=== PATIENT | female | born 1945 | race Hispanic/Latino ===

== ENCOUNTER 2020-10-13 10:08 | Outpatient (CLI) | payer MEDICARE, BC | END 2020-10-13 10:09 | disposition home or self-care (01) | LOC: BICULT 10:08 | PROVIDERS: ATTEND Family Medicine | DX: I82.402 Acute embolism and thrombosis of unspecified deep veins of left lower extremity (principal); R60.0 Localized edema ==

== ENCOUNTER 2021-07-05 13:03 | Outpatient (CLI) | payer MEDICARE, BC | END 2021-07-05 13:04 | disposition home or self-care (01) | LOC: BICCT 13:03 | PROVIDERS: ATTEND Specialist | DX: E27.8 Other specified disorders of adrenal gland (principal); D35.01 Benign neoplasm of right adrenal gland; K43.9 Ventral hernia without obstruction or gangrene; N20.0 Calculus of kidney; R91.1 Solitary pulmonary nodule; I70.90 Unspecified atherosclerosis | CPT/HCPCS: 74178; 82565 ==

== ENCOUNTER 2023-01-31 14:42 | Outpatient (CLI) | payer MEDICARE, BC | END 2023-01-31 14:43 | disposition home or self-care (01) | LOC: BICMAMMO 14:42 | PROVIDERS: ATTEND Internal Medicine Endocrinology, Diabetes & Metabolism | DX: M81.8 Other osteoporosis without current pathological fracture (principal); M85.851 Other specified disorders of bone density and structure, right thigh; M85.852 Other specified disorders of bone density and structure, left thigh | CPT/HCPCS: 77080 ==

== ENCOUNTER 2023-03-13 12:24 | Emergency (ER) | payer MEDICARE, BC ==
[2023-03-13 13:30] LABS: #Eosinphils 0.1 thou/uL (0.0-0.7); #Monocytes 0.6 thou/uL (0.11-0.59); #Neutrophils 5.7 thou/uL (1.40-6.50); %Basophils 0.5 % (0.0-1.0); %Eosinophils 1.2 % (0.0-10.0); %Lymphocytes 22.9 % (21.0-51.0); %Monocytes 7.4 % (0.0-10.0); %Neutrophils 67.8 % (42.0-75.0); Hemoglobin 13.8 g/dL (12.0-16.0); Mean Corpuscular HGB CONC 32.9 g/dL (32.0-36.0); Mean Corpuscular Hemoglobin 31.9 pg (27.0-31.0); Mean Platelet Volume 10.6 fL (7.4-10.4); Platelet Count 249 10x3/uL (130-400); RBC Distribution Width 14.4 % (11.5-14.5); Red Blood Cell (RBC) Count 4.33 mill/uL (4.20-5.40); White Blood Cell (WBC) Count 8.4 10x3/uL (4.8-10.8)
[2023-03-13] MEDS ORDERED: cefTRIAXone (ROCEPHIN) 1 GM VIAL ONE (13:30)
[2023-03-13 14:53] LABS: ALT (SGPT) 14 U/L (8-55); AST (SGOT) 20 U/L (5-34); Albumin 3.5 g/dL (3.4-4.8); Alkaline Phosphatase 115 U/L (40-110); Anion Gap 9 mmol/L (10-20); BUN (Urea Nitrogen) 15 mg/dL (9.8-20.1); Bilirubin, Total 0.3 mg/dL (0.2-1.2); Calc. Creatinine Clearance 0 mL/min (70-130); Calcium 8.5 mg/dL (7.8-10.44); Carbon Dioxide 30 mmol/L (23-31); Chloride 98 mmol/L (98-107); Estimated GFR 62; Globulin 2.9 g/dL (2.4-3.5); Glucose 81 mg/dL (83-110); Potassium 4.2 mmol/L (3.5-5.1); Protein, Total 6.4 g/dL (5.8-8.1); Sodium 133 mmol/L (136-145)
[2023-03-13] MEDS ORDERED: Iopamidol-370 76% 500 ML MDV (1 ML CHARGE) ONE (15:16)
== END 2023-03-13 17:42 | disposition home or self-care (01) ==
LOC: ERS 12:24
DX: L03.116 Cellulitis of left lower limb (principal); R91.8 Other nonspecific abnormal finding of lung field; E11.9 Type 2 diabetes mellitus without complications; E78.5 Hyperlipidemia, unspecified; I10 Essential (primary) hypertension; E66.9 Obesity, unspecified; F17.210 Nicotine dependence, cigarettes, uncomplicated
CPT/HCPCS: 71045; 71275; 80053; 83605; 83880; 84484; 85025; 87040; 93005; 96365; J0696; Q9967

== ENCOUNTER 2023-03-28 14:02 | Outpatient (CLI) | payer MEDICARE, BC | END 2023-03-28 14:03 | disposition home or self-care (01) | LOC: SCSMRI 14:02 | PROVIDERS: ATTEND Internal Medicine | DX: C79.31 Secondary malignant neoplasm of brain (principal); C34.31 Malignant neoplasm of lower lobe, right bronchus or lung; G93.9 Disorder of brain, unspecified; G93.6 Cerebral edema; R90.82 White matter disease, unspecified | CPT/HCPCS: 70553 ==

== ENCOUNTER → 2023-03-28 | Outpatient (CLI) | payer MEDICARE, BC | LOC: PET 11:45 | PROVIDERS: ATTEND Internal Medicine | DX: C34.91 Malignant neoplasm of unspecified part of right bronchus or lung (principal) | CPT/HCPCS: 78815; A9552 ==

== ENCOUNTER 2023-03-31 08:48 | Day surgery (SDC) | payer MEDICARE, BC ==
[2023-03-28 15:09] VITALS: BMI 37.2
[2023-03-31] MEDS ORDERED: fentaNYL 50 mcg/mL 1 mL Vial ONE (10:05)
[2023-03-31] MEDS ORDERED: SUGAMMADEX SODIUM 200 MG/2 ML VIAL ONE (10:05)
[2023-03-31] MEDS ORDERED: Midazolam HCl 2 mg/2 ml Vial ONE (10:06)
[2023-03-31] MEDS ORDERED: Ipratropium/Albuterol 3 ML NEB ONE (10:24)
[2023-03-31] MEDS ORDERED: Dextrose 50% Abboject 50 ML SYRINGE ONE (11:00)
== END 2023-03-31 11:41 | disposition home or self-care (01) ==
LOC: SDC 08:48
PROVIDERS: ATTEND Internal Medicine
DX: Z53.8 Procedure and treatment not carried out for other reasons (principal); R91.8 Other nonspecific abnormal finding of lung field; E16.2 Hypoglycemia, unspecified
CPT/HCPCS: 36416; J2250; J3010; J7620; J7999

== ENCOUNTER 2023-04-03 13:39 | Inpatient (IN) | payer MEDICARE, BC ==
[2023-04-03 14:38] LABS: #Eosinphils 0.2 thou/uL (0.0-0.7); #Monocytes 0.7 thou/uL (0.11-0.59); #Neutrophils 6.6 thou/uL (1.40-6.50); %Basophils 0.3 % (0.0-1.0); %Eosinophils 1.5 % (0.0-10.0); %Lymphocytes 24.3 % (21.0-51.0); %Neutrophils 66.6 % (42.0-75.0); Hematocrit 40.9 % (36.0-47.0); Hemoglobin 13.2 g/dL (12.0-16.0); Mean Corpuscular HGB CONC 32.3 g/dL (32.0-36.0); Mean Corpuscular Hemoglobin 31.4 pg (27.0-31.0); Mean Corpuscular Volume 97.4 fl (78.0-98.0); Mean Platelet Volume 10.5 fL (7.4-10.4); Platelet Count 233 10x3/uL (130-400); RBC Distribution Width 14.2 % (11.5-14.5); White Blood Cell (WBC) Count 9.8 10x3/uL (4.8-10.8)
[2023-04-03 15:11] LABS: ALT (SGPT) 10 U/L (8-55); AST (SGOT) 17 U/L (5-34); Albumin 3.3 g/dL (3.4-4.8); Alkaline Phosphatase 112 U/L (40-110); Anion Gap 12 mmol/L (10-20); BUN (Urea Nitrogen) 14 mg/dL (9.8-20.1); Bilirubin, Total 0.4 mg/dL (0.2-1.2); Calc. Creatinine Clearance 0 mL/min (70-130); Calcium 9.2 mg/dL (7.8-10.44); Carbon Dioxide 29 mmol/L (23-31); Chloride 97 mmol/L (98-107); Estimated GFR 73; Globulin 3.1 g/dL (2.4-3.5); Potassium 4.2 mmol/L (3.5-5.1); Protein, Total 6.4 g/dL (5.8-8.1); Sodium 134 mmol/L (136-145)
[2023-04-03 15:29] LABS: Glucose 47 mg/dL (83-110)
[2023-04-03] MEDS ORDERED: Vancomycin 1 GM/200 ML (FROZEN) BAG ONE (16:27)
[2023-04-03] MEDS ORDERED: Piperacillin/Tazobactam 3.375 GM VIAL ONE (16:27)
[2023-04-03] MEDS ORDERED: Ondansetron ODT 4 MG TAB PO PRN (17:02)
[2023-04-03] MEDS ORDERED: Acetaminophen 325 MG TAB PO PRN (17:02)
[2023-04-03] MEDS ORDERED: Dextrose 5% in Water 1,000 ML IV PRN (17:09)
[2023-04-03] MEDS ORDERED: Glucagon 1 MG/ML KIT IM PRN (17:09)
[2023-04-03] MEDS ORDERED: Dextrose 50% Abboject 50 ML SYRINGE SLOW IVP PRN (17:09)
[2023-04-03] MEDS ORDERED: Insulin Regular 300 UNITS/3 ML VIAL SC PRN (17:09)
[2023-04-03] MEDS ORDERED: Insulin Glargine 30 UNITS/0.3 ML VIAL SC SCH (21:00)
[2023-04-03 22:10] VITALS: BMI 37.2
[2023-04-03] MEDS ORDERED: Vancomycin 1 GM in Premix Bag 1 BAG IVPB SCH (23:00)
[2023-04-03] MEDS: Clindamycin/D5W 900 MG in Premix Bag 1 BAG IVPB SCH (23:22)
[2023-04-03] MEDS: Insulin Glargine 30 UNITS/0.3 ML VIAL SC SCH (23:23)
[2023-04-04] MEDS: Clindamycin/D5W 900 MG in Premix Bag 1 BAG IVPB SCH ×2 (06:56→14:06)
[2023-04-04 08:38] LABS: INR-International Normal Ratio 1.1; Prothrombin Time 14.1 sec (12.0-14.7)
[2023-04-04 08:39] LABS: PTT 32.9 sec (22.9-36.1)
[2023-04-04] MEDS ORDERED: fentaNYL 50 mcg/mL 1 mL Vial ONE (08:53)
[2023-04-04] MEDS ORDERED: Lidocaine 1% PF 5 ML VIAL ONE (08:54)
[2023-04-04] MEDS ORDERED: Midazolam HCl 2 mg/2 ml Vial ONE (08:54)
[2023-04-04] MEDS ORDERED: Sodium Bicarbonate 2.5 MEQ/5 ML VIAL ONE (08:54)
[2023-04-04] MEDS: Cefepime 1 GM in Sodium Chloride 0.9% 100 ML IVPB SCH (10:50)
[2023-04-04] MEDS ORDERED: Clindamycin/D5W 600 MG in Premix Bag 1 BAG IVPB SCH (14:15)
[2023-04-04] MEDS ORDERED: VANCOMYCIN 1.75 GM/500 ML BAG 1.75 GM in Premix Bag 1 BAG IVPB SCH (20:00)
[2023-04-04] MEDS ORDERED: Ezetimibe 10 MG TAB PO SCH (21:00)
[2023-04-04] MEDS ORDERED: Atorvastatin Calcium 40 MG TAB PO SCH (21:00)
[2023-04-04] MEDS ORDERED: Latanoprost 0.005% Ophth Soln 2.5 ml Bottle EA EYE SCH (21:00)
[2023-04-04] MEDS: glipiZIDE 10 MG TAB PO SCH (22:01)
[2023-04-04] MEDS: Insulin Glargine 30 UNITS/0.3 ML VIAL SC SCH (22:01)
[2023-04-04] MEDS: Clindamycin/D5W 600 MG in Premix Bag 1 BAG IVPB SCH (22:02)
[2023-04-05] MEDS: Cefepime 1 GM in Sodium Chloride 0.9% 100 ML IVPB SCH ×2 (00:26→08:22)
[2023-04-05] MEDS: Clindamycin/D5W 600 MG in Premix Bag 1 BAG IVPB SCH (06:16)
[2023-04-05 07:12] LABS: Anion Gap 12 mmol/L (10-20); BUN (Urea Nitrogen) 15 mg/dL (9.8-20.1); Calc. Creatinine Clearance 83 mL/min (70-130); Carbon Dioxide 25 mmol/L (23-31); Chloride 99 mmol/L (98-107); Estimated GFR 69; Glucose 95 mg/dL (83-110); Sodium 132 mmol/L (136-145)
[2023-04-05] MEDS: glipiZIDE 10 MG TAB PO SCH (08:21)
[2023-04-05 08:26] VITALS: BP 160/72; TEMP 97.8
[2023-04-05] MEDS ORDERED: Empagliflozin 25 MG TAB PO SCH (09:00)
[2023-04-05] MEDS ORDERED: Potassium Chloride 10 MEQ TAB PO SCH (09:00)
[2023-04-05] MEDS ORDERED: Clopidogrel Bisulfate 75 MG TAB PO SCH (09:00)
== END 2023-04-05 13:00 | disposition home or self-care (01) | DRG 603 ==
LOC: ERS 13:39 → T4-A 17:05 → OBSVTOIN 17:05
PROVIDERS: ADMIT Internal Medicine; ATTEND Family Medicine
PROC: 0BBF3ZX Excision of Right Lower Lung Lobe, Percutaneous Approach, Diagnostic (ICD-10-PCS; principal; 2023-04-04)
DX: L03.116 Cellulitis of left lower limb (principal); J96.11 Chronic respiratory failure with hypoxia; C7A.1 Malignant poorly differentiated neuroendocrine tumors; C79.31 Secondary malignant neoplasm of brain; I25.10 Atherosclerotic heart disease of native coronary artery without angina pectoris; E78.5 Hyperlipidemia, unspecified; E11.51 Type 2 diabetes mellitus with diabetic peripheral angiopathy without gangrene; I10 Essential (primary) hypertension; F17.210 Nicotine dependence, cigarettes, uncomplicated; E66.9 Obesity, unspecified; F41.9 Anxiety disorder, unspecified; Z88.5 Allergy status to narcotic agent; Z88.8 Allergy status to other drugs, medicaments and biological substances; Z79.82 Long term (current) use of aspirin; Z79.899 Other long term (current) drug therapy; Z79.4 Long term (current) use of insulin; Z90.49 Acquired absence of other specified parts of digestive tract; Z98.890 Other specified postprocedural states; Z87.81 Personal history of (healed) traumatic fracture; Z68.37 Body mass index [BMI] 37.0-37.9, adult; Z79.02 Long term (current) use of antithrombotics/antiplatelets
CPT/HCPCS: 32408; 36415; 36416; 71045; 77012; 80048; 80053; 83605; 85025; 85610; 85730; 87040; 88305; 88333; 88341; 88342; 88360; 96365; 96367; J0692; J1815; J2250; J2543; J3010; J3370; J3370-JW; J3490

== ENCOUNTER 2023-05-12 15:55 | Inpatient (IN) | payer MEDICARE, BC ==
[~2023-05-12 15:55] MED LIST: Iopamidol-370 76% 500 ML MDV (1 ML CHARGE) ONE
[2023-05-12 17:14] LABS: Hemoglobin 12.1 g/dL (12.0-16.0); Mean Corpuscular HGB CONC 33.6 g/dL (32.0-36.0); Mean Corpuscular Hemoglobin 31.4 pg (27.0-31.0); Mean Corpuscular Volume 93.5 fl (78.0-98.0); Mean Platelet Volume 12.3 fL (7.4-10.4); RBC Distribution Width 14.1 % (11.5-14.5); Red Blood Cell (RBC) Count 3.85 mill/uL (4.20-5.40); White Blood Cell (WBC) Count 29.5 10x3/uL (4.8-10.8)
[2023-05-12 17:15] LABS: Delete Auto Diff?? YES; Manual Diff?? YES; Platelet Count 62 10x3/uL (130-400)
[2023-05-12 17:34] LABS: ALT (SGPT) 10 U/L (8-55); AST (SGOT) 20 U/L (5-34); Albumin 3.5 g/dL (3.4-4.8); Alkaline Phosphatase 191 U/L (40-110); Anion Gap 14 mmol/L (10-20); BUN (Urea Nitrogen) 15 mg/dL (9.8-20.1); Bilirubin, Total 0.2 mg/dL (0.2-1.2); Calc. Creatinine Clearance 0 mL/min (70-130); Calcium 9.5 mg/dL (7.8-10.44); Carbon Dioxide 28 mmol/L (23-31); Chloride 95 mmol/L (98-107); Estimated GFR 53; Globulin 3.1 g/dL (2.4-3.5); Glucose 109 mg/dL (83-110); Potassium 3.6 mmol/L (3.5-5.1); Protein, Total 6.6 g/dL (5.8-8.1); Sodium 133 mmol/L (136-145)
[2023-05-12 17:37] LABS: Band 22 % (5-11); CellaVision Operator ID LAB.KB; Large Platelets 0.8 % (0-5); Lymphocytes 7 % (21-51); Monocytes 13 % (0-10); Myelocyte 3 % (0-0); Neutrophil 55 % (42-75); Ovalocytes SLIGHT = 2-5 cells HPF (0-1); Platelet Adequacy Comment Platelets Decreased; Polychromasia SLIGHT = 2-3 cells HPF (0-2); Reactive Lymphocytes 1 % (0-10); Smudge Cells 7.4 %; Total Cell Count 121
[2023-05-12] MEDS ORDERED: Cefepime 2 GM VIAL ONE (19:23)
[2023-05-12 19:26] LABS: Magnesium 1.8 mg/dL (1.6-2.6)
[2023-05-12 19:37] LABS: INR-International Normal Ratio 1.1; PTT 29.3 sec (22.9-36.1); Prothrombin Time 14.5 sec (12.0-14.7)
[2023-05-12 20:03] LABS: D-Dimer Test 2.42 *mcg/mL (0.27-0.43)
[2023-05-12] MEDS ORDERED: Vancomycin 1 GM/200 ML (FROZEN) BAG ONE (20:07)
[2023-05-12] MEDS ORDERED: Clindamycin/D5W 900 MG in Premix Bag 1 BAG IVPB SCH (20:30)
[2023-05-12 20:34] LABS: Troponin I 0.012 ng/mL (< 0.028)
[2023-05-12] MEDS ORDERED: Ondansetron ODT 4 MG TAB PO PRN (22:44)
[2023-05-12] MEDS ORDERED: Ondansetron PF 4 MG/2 ML Vial IVP PRN (22:44)
[2023-05-12] MEDS ORDERED: HYDROcodone/Acetaminophen 5/325 mg Tablet PO PRN (22:44)
[2023-05-12] MEDS ORDERED: Pharmacy to Dose : VANC/ABX'S IVPB PRN (22:51)
[2023-05-12] MEDS ORDERED: Melatonin 3 MG TAB PO SCH ×2 (23:45→23:59)
[2023-05-13 00:23] VITALS: BMI 36.1
[2023-05-13 04:55] LABS: Hematocrit 36.2 % (36.0-47.0); Hemoglobin 11.8 g/dL (12.0-16.0); Mean Corpuscular HGB CONC 32.6 g/dL (32.0-36.0); Mean Corpuscular Hemoglobin 30.7 pg (27.0-31.0); Mean Corpuscular Volume 94.3 fl (78.0-98.0); Mean Platelet Volume 10.9 fL (7.4-10.4); Red Blood Cell (RBC) Count 3.84 mill/uL (4.20-5.40); White Blood Cell (WBC) Count 30.3 10x3/uL (4.8-10.8)
[2023-05-13 05:05] LABS: Manual Diff?? YES; Platelet Count 67 10x3/uL (130-400)
[2023-05-13 05:06] LABS: Delete Auto Diff?? YES
[2023-05-13 05:13] LABS: Anion Gap 17 mmol/L (10-20); BUN (Urea Nitrogen) 13 mg/dL (9.8-20.1); Calc. Creatinine Clearance 74 mL/min (70-130); Calcium 8.9 mg/dL (7.8-10.44); Carbon Dioxide 24 mmol/L (23-31); Chloride 100 mmol/L (98-107); Estimated GFR 62; Glucose 150 mg/dL (83-110); Potassium 3.5 mmol/L (3.5-5.1); Sodium 137 mmol/L (136-145)
[2023-05-13] MEDS ORDERED: Furosemide 20 MG/2 ML VIAL ONE (06:23)
[2023-05-13] MEDS: Furosemide 20 MG/2 ML VIAL SLOW IVP SCH ×2 (06:25→14:18)
[2023-05-13 06:26] LABS: Anisocytosis SLIGHT = 6-15 cells HPF (0-5); Band 20 % (5-11); Burr Cells SLIGHT = 2-5 cells HPF (0-1); CellaVision Operator ID LAB.JMM; Lymphocytes 11 % (21-51); Macrocytosis SLIGHT = 6-15 cells HPF (0-5); Metamyelocyte 4 % (0-0); Monocytes 7 % (0-10); Myelocyte 2 % (0-0); Neutrophil 56 % (42-75); Platelet Adequacy Comment Platelets Decreased; Poikilocytosis SLIGHT = 6-15 cells HPF (0-5); Polychromasia SLIGHT = 2-3 cells HPF (0-2); Reactive Lymphocytes 1 % (0-10); Smudge Cells 10.8 %; Total Cell Count 102
[2023-05-13] MEDS ORDERED: Cefepime 1 GM VIAL ONE (09:05)
[2023-05-13] MEDS ORDERED: Aspirin Chewable 81 MG TAB ONE (09:05)
[2023-05-13] MEDS ORDERED: Clopidogrel Bisulfate 75 MG TAB ONE (09:05)
[2023-05-13] MEDS ORDERED: Vancomycin 1 GM/200 ML (FROZEN) BAG ONE (09:05)
[2023-05-13] MEDS: Cefepime 1 GM in Sodium Chloride 0.9% 100 ML IVPB SCH ×2 (09:10→20:38)
[2023-05-13] MEDS: Clopidogrel Bisulfate 75 MG TAB PO SCH (09:10)
[2023-05-13] MEDS: Aspirin Chewable 81 MG TAB PO SCH (09:10)
[2023-05-13] MEDS: Heparin 5,000 UNITS/ML VIAL SC SCH ×2 (09:45→20:44)
[2023-05-13] MEDS: Empagliflozin 25 MG TAB PO SCH (09:45)
[2023-05-13] MEDS: Isosorbide Mononitrate 60 MG ER.TAB PO SCH ×2 (09:55→20:39)
[2023-05-13] MEDS: Potassium Chloride 10 MEQ TAB PO SCH (09:56)
[2023-05-13] MEDS ORDERED: Dextrose 5% in Water 1,000 ML IV PRN (10:14)
[2023-05-13] MEDS ORDERED: Dextrose 50% Abboject 50 ML SYRINGE SLOW IVP PRN (10:14)
[2023-05-13] MEDS ORDERED: Glucagon 1 MG/ML KIT IM PRN (10:14)
[2023-05-13] MEDS: Vancomycin 1 GM in Premix Bag 1 BAG IVPB SCH (10:15)
[2023-05-13] MEDS: HumaLOG 300 UNITS/3 ML VIAL SC PRN ×3 (12:36→20:45)
[2023-05-13] MEDS: glipiZIDE 10 MG TAB PO SCH (17:13)
[2023-05-13] MEDS: Atorvastatin Calcium 40 MG TAB PO SCH (20:39)
[2023-05-13] MEDS: Ezetimibe 10 MG TAB PO SCH (20:40)
[2023-05-13] MEDS: Acetaminophen 325 MG TAB PO PRN (20:41)
[2023-05-13] MEDS: Insulin Glargine 30 UNITS/0.3 ML VIAL SC SCH (20:43)
[2023-05-13] MEDS ORDERED: Insulin Glargine 30 UNITS/0.3 ML VIAL SC SCH ×2 (21:00)
[2023-05-13] MEDS: Latanoprost 0.005% Ophth Soln 2.5 ml Bottle EA EYE SCH (22:34)
[2023-05-14] MEDS: Furosemide 20 MG/2 ML VIAL SLOW IVP SCH ×2 (05:22→14:01)
[2023-05-14] MEDS: Acetaminophen 325 MG TAB PO PRN ×2 (05:29→23:04)
[2023-05-14] MEDS: Cefepime 1 GM in Sodium Chloride 0.9% 100 ML IVPB SCH ×2 (08:44→21:45)
[2023-05-14] MEDS: Isosorbide Mononitrate 60 MG ER.TAB PO SCH ×2 (08:45→21:46)
[2023-05-14] MEDS: Clopidogrel Bisulfate 75 MG TAB PO SCH (08:45)
[2023-05-14] MEDS: Empagliflozin 25 MG TAB PO SCH (08:46)
[2023-05-14] MEDS: Potassium Chloride 10 MEQ TAB PO SCH (08:46)
[2023-05-14] MEDS: Heparin 5,000 UNITS/ML VIAL SC SCH (08:47)
[2023-05-14] MEDS: glipiZIDE 10 MG TAB PO SCH ×2 (08:47→15:51)
[2023-05-14] MEDS: Vancomycin 1 GM in Premix Bag 1 BAG IVPB SCH (08:48)
[2023-05-14 09:47] LABS: Hematocrit 34.4 % (36.0-47.0); Hemoglobin 11.4 g/dL (12.0-16.0); Mean Corpuscular HGB CONC 33.1 g/dL (32.0-36.0); Mean Corpuscular Hemoglobin 31.1 pg (27.0-31.0); Mean Corpuscular Volume 93.7 fl (78.0-98.0); Mean Platelet Volume 10.4 fL (7.4-10.4); RBC Distribution Width 14.3 % (11.5-14.5); Red Blood Cell (RBC) Count 3.67 mill/uL (4.20-5.40); White Blood Cell (WBC) Count 32.4 10x3/uL (4.8-10.8)
[2023-05-14 09:56] LABS: Delete Auto Diff?? YES; Manual Diff?? YES; Platelet Count 67 10x3/uL (130-400)
[2023-05-14 10:16] LABS: Vancomycin, Trough 11.2 ug/mL
[2023-05-14 10:27] LABS: Anion Gap 16 mmol/L (10-20); BUN (Urea Nitrogen) 15 mg/dL (9.8-20.1); Calc. Creatinine Clearance 71 mL/min (70-130); Calcium 8.8 mg/dL (7.8-10.44); Carbon Dioxide 26 mmol/L (23-31); Chloride 95 mmol/L (98-107); Estimated GFR 60; Glucose 155 mg/dL (83-110); Potassium 3.6 mmol/L (3.5-5.1); Sodium 133 mmol/L (136-145)
[2023-05-14 10:33] LABS: Band 28 % (5-11); CellaVision Operator ID LAB.GE; Dohle Bodies SLIGHT; Lymphocytes 9 % (21-51); Macrocytosis SLIGHT = 6-15 cells HPF (0-5); Metamyelocyte 2 % (0-0); Monocytes 6 % (0-10); Myelocyte 2 % (0-0); Neutrophil 51 % (42-75); Nucleated RBC (Manual Ct) 1 % (0); Platelet Adequacy Comment Platelets Decreased; Poikilocytosis SLIGHT = 6-15 cells HPF (0-5); Polychromasia SLIGHT = 2-3 cells HPF (0-2); Reactive Lymphocytes 1 % (0-10); Total Cell Count 105; Toxic Granulation SLIGHT
[2023-05-14] MEDS ORDERED: Vancomycin HCl 500 MG in Sodium Chloride 0.9% 100 ML IVPB SCH (11:00)
[2023-05-14] MEDS: HumaLOG 300 UNITS/3 ML VIAL SC PRN (18:02)
[2023-05-14] MEDS: Latanoprost 0.005% Ophth Soln 2.5 ml Bottle EA EYE SCH (21:45)
[2023-05-14] MEDS: Insulin Glargine 30 UNITS/0.3 ML VIAL SC SCH (21:46)
[2023-05-14] MEDS: Ezetimibe 10 MG TAB PO SCH (21:46)
[2023-05-14] MEDS: Atorvastatin Calcium 40 MG TAB PO SCH (21:46)
[2023-05-15] MEDS: Acetaminophen 325 MG TAB PO PRN ×2 (04:12→21:09)
[2023-05-15] MEDS: Furosemide 20 MG/2 ML VIAL SLOW IVP SCH (06:12)
[2023-05-15] MEDS: Cefepime 1 GM in Sodium Chloride 0.9% 100 ML IVPB SCH (09:13)
[2023-05-15] MEDS: Isosorbide Mononitrate 60 MG ER.TAB PO SCH ×2 (09:14→20:40)
[2023-05-15] MEDS: Potassium Chloride 10 MEQ TAB PO SCH (09:14)
[2023-05-15] MEDS: glipiZIDE 10 MG TAB PO SCH ×2 (09:14→18:15)
[2023-05-15] MEDS: Empagliflozin 25 MG TAB PO SCH (09:14)
[2023-05-15] MEDS: Clopidogrel Bisulfate 75 MG TAB PO SCH (09:14)
[2023-05-15] MEDS: Aspirin Chewable 81 MG TAB PO SCH (09:14)
[2023-05-15] MEDS: HumaLOG 300 UNITS/3 ML VIAL SC PRN (12:25)
[2023-05-15] MEDS ORDERED: Vancomycin 1.5 GRAM/300 ML BAG 1.5 GM in Premix Bag 1 BAG IVPB SCH (13:00)
[2023-05-15] MEDS: diphenhydrAMINE 50 MG/ML VIAL IVP PRN (14:52)
[2023-05-15] MEDS: Atorvastatin Calcium 40 MG TAB PO SCH (20:40)
[2023-05-15] MEDS: Ezetimibe 10 MG TAB PO SCH (20:40)
[2023-05-15] MEDS: Latanoprost 0.005% Ophth Soln 2.5 ml Bottle EA EYE SCH (20:42)
[2023-05-15] MEDS: Insulin Glargine 30 UNITS/0.3 ML VIAL SC SCH (20:42)
[2023-05-15] MEDS: Linezolid 600 MG TAB PO SCH (21:09)
[2023-05-16 04:22] LABS: Hematocrit 32.6 % (36.0-47.0); Hemoglobin 10.7 g/dL (12.0-16.0); Mean Corpuscular HGB CONC 32.8 g/dL (32.0-36.0); Mean Corpuscular Hemoglobin 30.8 pg (27.0-31.0); Mean Corpuscular Volume 93.9 fl (78.0-98.0); Mean Platelet Volume 10.8 fL (7.4-10.4); Platelet Count 147 10x3/uL (130-400); Red Blood Cell (RBC) Count 3.47 mill/uL (4.20-5.40); White Blood Cell (WBC) Count 45.4 10x3/uL (4.8-10.8)
[2023-05-16 04:29] LABS: Delete Auto Diff?? YES; Manual Diff?? YES
[2023-05-16 04:42] LABS: Anion Gap 11 mmol/L (10-20); BUN (Urea Nitrogen) 13 mg/dL (9.8-20.1); Calc. Creatinine Clearance 80 mL/min (70-130); Calcium 8.6 mg/dL (7.8-10.44); Carbon Dioxide 29 mmol/L (23-31); Chloride 93 mmol/L (98-107); Estimated GFR 69; Glucose 68 mg/dL (83-110); Potassium 3.7 mmol/L (3.5-5.1); Sodium 129 mmol/L (136-145)
[2023-05-16 04:53] LABS: Band 9 % (5-11); CellaVision Operator ID lab.sh2; Hypochromia SLIGHT = 6-15 cells HPF (0-5); Lymphocytes 2 % (21-51); Monocytes 6 % (0-10); Neutrophil 84 % (42-75); Nucleated RBC (Manual Ct) 1 % (0); Ovalocytes SLIGHT = 2-5 cells HPF (0-1); Platelet Adequacy Comment Platelets Normal; Poikilocytosis SLIGHT = 6-15 cells HPF (0-5); Polychromasia SLIGHT = 2-3 cells HPF (0-2); Smudge Cells 7.7 %; Total Cell Count 104; Vacuoles SLIGHT
[2023-05-16] MEDS: Isosorbide Mononitrate 60 MG ER.TAB PO SCH ×2 (08:50→20:24)
[2023-05-16] MEDS: diphenhydrAMINE 50 MG/ML VIAL IVP PRN ×2 (08:50→12:45)
[2023-05-16] MEDS: Potassium Chloride 10 MEQ TAB PO SCH (08:50)
[2023-05-16] MEDS: Clopidogrel Bisulfate 75 MG TAB PO SCH (08:50)
[2023-05-16] MEDS: FARXIGA 10 MG TABLET PO SCH (08:51)
[2023-05-16] MEDS: glipiZIDE 10 MG TAB PO SCH ×2 (08:54→17:22)
[2023-05-16] MEDS: HYDROcodone/Acetaminophen 5/325 mg Tablet PO PRN ×2 (09:14→20:43)
[2023-05-16] MEDS: Linezolid 600 MG TAB PO SCH ×2 (11:40→20:19)
[2023-05-16] MEDS ORDERED: Iopamidol-370 76% 500 ML MDV (1 ML CHARGE) ONE (15:52)
[2023-05-16] MEDS: Insulin Glargine 30 UNITS/0.3 ML VIAL SC SCH (19:44)
[2023-05-16] MEDS: Atorvastatin Calcium 40 MG TAB PO SCH (20:45)
[2023-05-16] MEDS: Ezetimibe 10 MG TAB PO SCH (20:45)
[2023-05-16] MEDS: Latanoprost 0.005% Ophth Soln 2.5 ml Bottle EA EYE SCH (20:45)
[2023-05-17 05:41] LABS: #Basophils 0.1 thou/uL (0.0-0.2); #Eosinphils 0.1 thou/uL (0.0-0.7); #Monocytes 3.3 thou/uL (0.11-0.59); #Neutrophils 30.9 thou/uL (1.40-6.50); %Basophils 0.3 % (0.0-1.0); %Eosinophils 0.1 % (0.0-10.0); %Monocytes 8.7 % (0.0-10.0); %Neutrophils 80.6 % (42.0-75.0); Hematocrit 34.9 % (36.0-47.0); Hemoglobin 11.5 g/dL (12.0-16.0); Mean Corpuscular Hemoglobin 30.9 pg (27.0-31.0); Mean Corpuscular Volume 93.8 fl (78.0-98.0); Mean Platelet Volume 10.8 fL (7.4-10.4); Platelet Count 140 10x3/uL (130-400); RBC Distribution Width 14.3 % (11.5-14.5); Red Blood Cell (RBC) Count 3.72 mill/uL (4.20-5.40); White Blood Cell (WBC) Count 38.4 10x3/uL (4.8-10.8)
[2023-05-17 05:44] LABS: Manual Diff?? YES
[2023-05-17 06:05] LABS: Anion Gap 10 mmol/L (10-20); BUN (Urea Nitrogen) 11 mg/dL (9.8-20.1); Calc. Creatinine Clearance 77 mL/min (70-130); Calcium 8.7 mg/dL (7.8-10.44); Carbon Dioxide 30 mmol/L (23-31); Chloride 93 mmol/L (98-107); Estimated GFR 65; Glucose 75 mg/dL (83-110); Sodium 129 mmol/L (136-145)
[2023-05-17 06:07] LABS: Band 18 % (5-11); CellaVision Operator ID LAB.CLH1; Hypochromia SLIGHT = 6-15 cells HPF (0-5); Lymphocytes 4 % (21-51); Macrocytosis SLIGHT = 6-15 cells HPF (0-5); Monocytes 4 % (0-10); Neutrophil 72 % (42-75); Platelet Adequacy Comment Platelets Normal; Poikilocytosis SLIGHT = 6-15 cells HPF (0-5); Polychromasia SLIGHT = 2-3 cells HPF (0-2); Reactive Lymphocytes 2 % (0-10); Total Cell Count 100
[2023-05-17] MEDS: Potassium Chloride 10 MEQ TAB PO SCH (08:51)
[2023-05-17] MEDS: Isosorbide Mononitrate 60 MG ER.TAB PO SCH ×2 (08:51→21:24)
[2023-05-17] MEDS: Clopidogrel Bisulfate 75 MG TAB PO SCH (08:51)
[2023-05-17] MEDS: Aspirin Chewable 81 MG TAB PO SCH (08:51)
[2023-05-17] MEDS: glipiZIDE 10 MG TAB PO SCH ×3 (08:51→17:41)
[2023-05-17] MEDS: FARXIGA 10 MG TABLET PO SCH (08:53)
[2023-05-17] MEDS: Linezolid 600 MG TAB PO SCH (12:21)
[2023-05-17] MEDS: Hydrocortisone 1% Cream 30 GM TUBE TOP PRN (12:21)
[2023-05-17] MEDS: diphenhydrAMINE 50 MG/ML VIAL IVP PRN ×2 (12:22→21:21)
[2023-05-17] MEDS ORDERED: Sulfameth/Trimethoprim DS 800-160mg TAB PO SCH ×2 (13:00)
[2023-05-17] MEDS: Ipratropium/Albuterol 3 ML NEB NEB SCH ×2 (15:14→18:26)
[2023-05-17] MEDS: HumaLOG 300 UNITS/3 ML VIAL SC PRN (17:46)
[2023-05-17] MEDS: Ezetimibe 10 MG TAB PO SCH (21:24)
[2023-05-17] MEDS: Atorvastatin Calcium 40 MG TAB PO SCH (21:24)
[2023-05-17] MEDS: HYDROcodone/Acetaminophen 5/325 mg Tablet PO PRN (21:25)
[2023-05-17] MEDS: Sulfameth/Trimethoprim DS 800-160mg TAB PO SCH (21:25)
[2023-05-17] MEDS: Insulin Glargine 30 UNITS/0.3 ML VIAL SC SCH (21:28)
[2023-05-17] MEDS: Latanoprost 0.005% Ophth Soln 2.5 ml Bottle EA EYE SCH (21:28)
[2023-05-18] MEDS: Ipratropium/Albuterol 3 ML NEB NEB SCH ×4 (01:29→18:24)
[2023-05-18] MEDS: HYDROcodone/Acetaminophen 5/325 mg Tablet PO PRN ×2 (03:41→21:27)
[2023-05-18] MEDS: glipiZIDE 10 MG TAB PO SCH ×2 (08:03→17:15)
[2023-05-18] MEDS: Potassium Chloride 10 MEQ TAB PO SCH (08:03)
[2023-05-18] MEDS: Sulfameth/Trimethoprim DS 800-160mg TAB PO SCH ×2 (08:03→21:25)
[2023-05-18] MEDS: Clopidogrel Bisulfate 75 MG TAB PO SCH (08:03)
[2023-05-18] MEDS: FARXIGA 10 MG TABLET PO SCH (08:04)
[2023-05-18] MEDS: diphenhydrAMINE 50 MG/ML VIAL IVP PRN ×2 (08:04→17:19)
[2023-05-18] MEDS: Isosorbide Mononitrate 60 MG ER.TAB PO SCH ×2 (08:04→21:26)
[2023-05-18 08:40] LABS: Hematocrit 34.1 % (36.0-47.0); Hemoglobin 11.3 g/dL (12.0-16.0); Mean Corpuscular HGB CONC 33.1 g/dL (32.0-36.0); Mean Corpuscular Hemoglobin 30.8 pg (27.0-31.0); Mean Corpuscular Volume 92.9 fl (78.0-98.0); Mean Platelet Volume 10.3 fL (7.4-10.4); Platelet Count 261 10x3/uL (130-400); RBC Distribution Width 14.6 % (11.5-14.5); Red Blood Cell (RBC) Count 3.67 mill/uL (4.20-5.40)
[2023-05-18 09:04] LABS: Anion Gap 15 mmol/L (10-20); BUN (Urea Nitrogen) 16 mg/dL (9.8-20.1); Calc. Creatinine Clearance 54 mL/min (70-130); Calcium 8.5 mg/dL (7.8-10.44); Carbon Dioxide 25 mmol/L (23-31); Chloride 92 mmol/L (98-107); Estimated GFR 43; Glucose 107 mg/dL (83-110); Potassium 4.2 mmol/L (3.5-5.1); Sodium 128 mmol/L (136-145)
[2023-05-18 09:20] LABS: Manual Diff?? YES
[2023-05-18 09:21] LABS: Delete Auto Diff?? YES
[2023-05-18 10:08] LABS: Band 9 % (5-11); Burr Cells SLIGHT = 2-5 cells HPF (0-1); CellaVision Operator ID LAB.NR; Lymphocytes 4 % (21-51); Macrocytosis SLIGHT = 6-15 cells HPF (0-5); Metamyelocyte 1 % (0-0); Monocytes 10 % (0-10); Neutrophil 76 % (42-75); Platelet Adequacy Comment Platelets Normal; Polychromasia SLIGHT = 2-3 cells HPF (0-2); Total Cell Count 101
[2023-05-18] MEDS ORDERED: Miconazole 2% Cream 30 GM TUBE TOP SCH (12:51)
[2023-05-18] MEDS: Hydrocortisone 1% Cream 30 GM TUBE TOP PRN (17:13)
[2023-05-18] MEDS: Atorvastatin Calcium 40 MG TAB PO SCH (21:25)
[2023-05-18] MEDS: Latanoprost 0.005% Ophth Soln 2.5 ml Bottle EA EYE SCH (21:26)
[2023-05-18] MEDS: Insulin Glargine 30 UNITS/0.3 ML VIAL SC SCH (21:26)
[2023-05-18] MEDS: Ezetimibe 10 MG TAB PO SCH (21:26)
[2023-05-18] MEDS: Clotrimazole 2% 3 Day Vag Cr 22.2 GM TUBE VAG SCH (21:40)
[2023-05-19] MEDS: Ipratropium/Albuterol 3 ML NEB NEB SCH ×5 (00:14→23:24)
[2023-05-19] MEDS: diphenhydrAMINE 50 MG/ML VIAL IVP PRN ×2 (01:23→15:24)
[2023-05-19 05:34] LABS: Hematocrit 31.8 % (36.0-47.0); Hemoglobin 10.6 g/dL (12.0-16.0); Mean Corpuscular HGB CONC 33.3 g/dL (32.0-36.0); Mean Corpuscular Hemoglobin 30.9 pg (27.0-31.0); Mean Corpuscular Volume 92.7 fl (78.0-98.0); Mean Platelet Volume 9.5 fL (7.4-10.4); Platelet Count 312 10x3/uL (130-400); RBC Distribution Width 14.7 % (11.5-14.5); Red Blood Cell (RBC) Count 3.43 mill/uL (4.20-5.40); White Blood Cell (WBC) Count 32.8 10x3/uL (4.8-10.8)
[2023-05-19 05:36] LABS: Delete Auto Diff?? YES; Manual Diff?? YES
[2023-05-19 05:58] LABS: Anion Gap 11 mmol/L (10-20); Anisocytosis SLIGHT = 6-15 cells HPF (0-5); BUN (Urea Nitrogen) 18 mg/dL (9.8-20.1); Band 8 % (5-11); Calc. Creatinine Clearance 50 mL/min (70-130); Calcium 8.4 mg/dL (7.8-10.44); Carbon Dioxide 26 mmol/L (23-31); CellaVision Operator ID LAB.CLH1; Chloride 93 mmol/L (98-107); Estimated GFR 39; Glucose 162 mg/dL (83-110); Hypochromia SLIGHT = 6-15 cells HPF (0-5); Lymphocytes 4 % (21-51); Macrocytosis SLIGHT = 6-15 cells HPF (0-5); Monocytes 9 % (0-10); Neutrophil 78 % (42-75); Platelet Adequacy Comment Platelets Normal; Polychromasia SLIGHT = 2-3 cells HPF (0-2); Potassium 4.4 mmol/L (3.5-5.1); Reactive Lymphocytes 1 % (0-10); Sodium 126 mmol/L (136-145); Total Cell Count 100
[2023-05-19] MEDS: Hydrocortisone 1% Cream 30 GM TUBE TOP PRN (08:55)
[2023-05-19] MEDS: Aspirin Chewable 81 MG TAB PO SCH (08:56)
[2023-05-19] MEDS: Clopidogrel Bisulfate 75 MG TAB PO SCH (08:56)
[2023-05-19] MEDS: glipiZIDE 10 MG TAB PO SCH ×2 (08:56→15:30)
[2023-05-19] MEDS: Potassium Chloride 10 MEQ TAB PO SCH (08:56)
[2023-05-19] MEDS: Sulfameth/Trimethoprim DS 800-160mg TAB PO SCH ×2 (08:56→21:59)
[2023-05-19] MEDS: FARXIGA 10 MG TABLET PO SCH (08:57)
[2023-05-19] MEDS: Isosorbide Mononitrate 60 MG ER.TAB PO SCH ×2 (08:57→21:59)
[2023-05-19] MEDS: Clotrimazole 2% 3 Day Vag Cr 22.2 GM TUBE VAG SCH ×2 (12:48→22:02)
[2023-05-19] MEDS: HumaLOG 300 UNITS/3 ML VIAL SC PRN (12:50)
[2023-05-19] MEDS: Ezetimibe 10 MG TAB PO SCH (21:59)
[2023-05-19] MEDS: HYDROcodone/Acetaminophen 5/325 mg Tablet PO PRN (21:59)
[2023-05-19] MEDS: Atorvastatin Calcium 40 MG TAB PO SCH (21:59)
[2023-05-19] MEDS: Hydrocortisone 1% Cream 30 GM TUBE TOP SCH (22:02)
[2023-05-19] MEDS: Insulin Glargine 30 UNITS/0.3 ML VIAL SC SCH (22:03)
[2023-05-19] MEDS: Latanoprost 0.005% Ophth Soln 2.5 ml Bottle EA EYE SCH (22:03)
[2023-05-20 07:12] VITALS: BP 122/66; TEMP 98.2
[2023-05-20] MEDS: Ipratropium/Albuterol 3 ML NEB NEB SCH ×2 (07:22→13:18)
[2023-05-20] MEDS: Potassium Chloride 10 MEQ TAB PO SCH (08:25)
[2023-05-20] MEDS: glipiZIDE 10 MG TAB PO SCH (08:25)
[2023-05-20] MEDS: Sulfameth/Trimethoprim DS 800-160mg TAB PO SCH (08:26)
[2023-05-20] MEDS: Hydrocortisone 1% Cream 30 GM TUBE TOP SCH (08:26)
[2023-05-20] MEDS: Clopidogrel Bisulfate 75 MG TAB PO SCH (08:26)
[2023-05-20] MEDS: Isosorbide Mononitrate 60 MG ER.TAB PO SCH (08:26)
[2023-05-20] MEDS: FARXIGA 10 MG TABLET PO SCH (08:26)
[2023-05-20] MEDS: Clotrimazole 2% 3 Day Vag Cr 22.2 GM TUBE VAG SCH (08:26)
[2023-05-20 10:22] LABS: Anion Gap 13 mmol/L (10-20); BUN (Urea Nitrogen) 17 mg/dL (9.8-20.1); Calc. Creatinine Clearance 54 mL/min (70-130); Calcium 8.4 mg/dL (7.8-10.44); Carbon Dioxide 24 mmol/L (23-31); Chloride 94 mmol/L (98-107); Estimated GFR 43; Glucose 218 mg/dL (83-110); Potassium 4.8 mmol/L (3.5-5.1); Sodium 126 mmol/L (136-145)
== END 2023-05-20 14:17 | disposition home or self-care (01) | DRG 871 ==
LOC: ERS 15:55 → T4-A 21:11 → ERHOLD 21:51 → OBSVTOIN 05-13 11:05 → T4-A 05-13 11:54
PROVIDERS: ADMIT Internal Medicine; ATTEND Hospitalist
DX: A41.9 Sepsis, unspecified organism (principal); J96.21 Acute and chronic respiratory failure with hypoxia; L03.116 Cellulitis of left lower limb; C34.90 Malignant neoplasm of unspecified part of unspecified bronchus or lung; C79.31 Secondary malignant neoplasm of brain; D84.9 Immunodeficiency, unspecified; E78.5 Hyperlipidemia, unspecified; E11.51 Type 2 diabetes mellitus with diabetic peripheral angiopathy without gangrene; I25.10 Atherosclerotic heart disease of native coronary artery without angina pectoris; I87.2 Venous insufficiency (chronic) (peripheral); N18.31 Chronic kidney disease, stage 3a; E66.9 Obesity, unspecified; E11.22 Type 2 diabetes mellitus with diabetic chronic kidney disease; F41.9 Anxiety disorder, unspecified; D69.6 Thrombocytopenia, unspecified; I12.9 Hypertensive chronic kidney disease with stage 1 through stage 4 chronic kidney disease, or unspecified chronic kidney disease; Z98.890 Other specified postprocedural states; Z87.891 Personal history of nicotine dependence; Z99.81 Dependence on supplemental oxygen; Z88.8 Allergy status to other drugs, medicaments and biological substances; Z79.82 Long term (current) use of aspirin; Z79.899 Other long term (current) drug therapy; Z79.4 Long term (current) use of insulin; Z90.49 Acquired absence of other specified parts of digestive tract; Z88.1 Allergy status to other antibiotic agents
CPT/HCPCS: 36415; 36416; 71275; 75635; 80048; 80053; 80202; 83605; 83735; 83880; 84484; 85025; 85060; 85379; 85610; 85730; 86140; 87040; 93005; 93923; 94640; 94760; 96365; 96367; 96375; 96376; G0378; J0692; J1200; J1642; J1644; J1815; J1940; J2405; J3370; J3370-JW; J3490; J7620; Q9967

== ENCOUNTER 2023-07-03 08:52 | Outpatient (CLI) | payer MEDICARE, BC | END 2023-07-03 08:53 | disposition home or self-care (01) | LOC: MRI 08:52 | PROVIDERS: ATTEND Radiology Radiation Oncology | DX: C79.31 Secondary malignant neoplasm of brain (principal) | CPT/HCPCS: 70553 ==

== ENCOUNTER 2023-07-03 10:19 | Outpatient (CLI) | payer MEDICARE, BC | END 2023-07-03 10:20 | disposition home or self-care (01) | LOC: BICCT 10:19 | PROVIDERS: ATTEND Internal Medicine | DX: C34.11 Malignant neoplasm of upper lobe, right bronchus or lung (principal) | CPT/HCPCS: 71260; 74177 ==

== ENCOUNTER 2023-09-01 09:00 | Outpatient (CLI) | payer MEDICARE, BC ==
[2023-09-01] MEDS ORDERED: Magnevist 469MG/ML 20 ML VIAL ONE (09:25)
== END 2023-09-01 09:01 | disposition home or self-care (01) ==
LOC: MRI 09:00
PROVIDERS: ATTEND Radiology Radiation Oncology
DX: C79.31 Secondary malignant neoplasm of brain (principal); C34.90 Malignant neoplasm of unspecified part of unspecified bronchus or lung
CPT/HCPCS: 70553

== ENCOUNTER 2023-09-05 07:54 | Outpatient (CLI) | payer MEDICARE, BC ==
[2023-09-05] MEDS ORDERED: Iopamidol 370 76% 100 ML VIAL ONE (12:19)
== END 2023-09-05 07:55 | disposition home or self-care (01) ==
LOC: CT 07:54
PROVIDERS: ATTEND Internal Medicine
DX: C34.90 Malignant neoplasm of unspecified part of unspecified bronchus or lung (principal); R91.8 Other nonspecific abnormal finding of lung field; R59.0 Localized enlarged lymph nodes; I70.90 Unspecified atherosclerosis; K43.9 Ventral hernia without obstruction or gangrene; E27.8 Other specified disorders of adrenal gland
CPT/HCPCS: 71260; 74177; 82565; Q9967

== ENCOUNTER 2023-10-24 08:32 | Outpatient (CLI) | payer MEDICARE, BC ==
[2023-10-24] MEDS ORDERED: Iopamidol 370 76% 100 ML VIAL ONE (13:00)
== END 2023-10-24 08:33 | disposition home or self-care (01) ==
LOC: CT 08:32
PROVIDERS: ATTEND Internal Medicine
DX: C34.10 Malignant neoplasm of upper lobe, unspecified bronchus or lung (principal); K43.9 Ventral hernia without obstruction or gangrene; I70.90 Unspecified atherosclerosis; E27.9 Disorder of adrenal gland, unspecified; R59.0 Localized enlarged lymph nodes
CPT/HCPCS: 71260; 74177; Q9967

== ENCOUNTER 2023-11-07 12:04 | Outpatient (CLI) | payer MEDICARE, BC | END 2023-11-07 12:05 | disposition home or self-care (01) | LOC: SCSMRI 12:04 | PROVIDERS: ATTEND Internal Medicine | DX: C34.90 Malignant neoplasm of unspecified part of unspecified bronchus or lung (principal); R51.9 Headache, unspecified | CPT/HCPCS: 70553 ==

== ENCOUNTER 2024-02-20 14:48 | Outpatient (CLI) | payer MEDICARE, BC | END 2024-02-20 14:49 | disposition home or self-care (01) | LOC: SCSMRI 14:48 | PROVIDERS: ATTEND Radiology Radiation Oncology | DX: C34.90 Malignant neoplasm of unspecified part of unspecified bronchus or lung (principal); C79.31 Secondary malignant neoplasm of brain | CPT/HCPCS: 70553 ==

== ENCOUNTER 2024-03-05 08:53 | Outpatient (CLI) | payer MEDICARE, BC | END 2024-03-05 08:54 | disposition home or self-care (01) | LOC: CT 08:53 | PROVIDERS: ATTEND Internal Medicine | DX: C34.11 Malignant neoplasm of upper lobe, right bronchus or lung (principal); C79.71 Secondary malignant neoplasm of right adrenal gland; J90 Pleural effusion, not elsewhere classified; R59.0 Localized enlarged lymph nodes; J98.09 Other diseases of bronchus, not elsewhere classified; R91.8 Other nonspecific abnormal finding of lung field | CPT/HCPCS: 71260; 74177; Q9967 ==